=== PATIENT | female | born 1980 | race Caucasian/White ===

== ENCOUNTER 2019-07-05 03:58 | Inpatient (IN) | payer BC ==
[2019-07-05] MEDS ORDERED: Lidocaine 1% 50 ML MDV ONE (04:20)
[2019-07-05] MEDS ORDERED: Oxytocin 10 Units/1 ML SDV IM ONE (04:34)
[2019-07-05] MEDS ORDERED: Lidocaine 1% 50 ML MDV INJECT ONE (04:34)
--- NOTE | 2019-07-05 04:46 | PCM.LDHP ---
L&D History of Present Illness - General Date of Service: 07/05/19 Admit Problem/Dx: Patient Status Order with Admit Dx/Problem 07/05/19 04:35 Patient Status [ADT] Routine Admission Diagnosis/Problem Admission Diagnosis/Problem Vaginal delivery Source of Information: Patient History Limitations: Reports: No Limitations - History of Present Illness Introduction:: Rosmery Zavala is a 39-year-old now -0-2-2 status post precipitous vaginal delivery in route to the hospital at 39 weeks 4 days (NIKKI 07/08/2019). She reports that she had started having contractions last evening at around 9:30 PM and they were about 10 minutes apart. She reports that at around 3:30 in the morning they became much stronger and closer together and she and her started to drive to [place] for delivery. While she was in route her water broke with return of clear fluid. She had a spontaneous delivery of while she was driving to [place]. She states that she delivered the infant at approximately 3:40 AM. Present Illness Comments:: Rosmery Zavala is a 39-year-old now -0-2-2 status post precipitous vaginal delivery in her personal vehicle while in route to the hospital in [place]. She had a routine care with Dr. Dhaliwal starting at approximately 18 weeks gestational age. She denies any complications with the . She received the Tdap vaccine on 05/05/2019. This is complicated by: * Advanced maternal age * Obesity * History of polycystic ovarian syndrome labs Blood type: O+ Antibody screen: Negative Urine culture: Negative Rubella status: Immune Hepatitis B surface antigen: Negative RPR: Negative HIV: Negative Gonorrhea: Negative Chlamydia: Negative One hour glucose tolerance test: 134 Second trimester hemoglobin: 12.7 on 04/07/2019 Platelets: 259 on 04/07/2019 3-hour glucose tolerance test: Fasting 81, 1 hour 162, 2-hour 143 and 3-hour 67 GBS status: Negative - Related Data Allergies/Adverse Reactions: Allergies Allergy/AdvReac Type Severity Reaction Status Date / Time No Known Allergies Allergy Verified 07/05/19 04:38 Home Medications: Home Meds No122/Iron/Folic Acid [ Multi Tablet] 1 tab PO DAILY 07/05/19 [ History] Past Medical History - Past Health History Medical/Surgical History: Denies Medical/Surgical History SUSTAINABLE AGRICULTURE FACULTY History: Reports: Polycystic Ovaries, : 4 Para: 2 Neurological History: Reports: Migraines - Past Surgical History HEENT Surgical History: Reports: Oral Surgery Social & Family History - Family History Family Medical History: Noncontributory - Tobacco Use Smoking Status *Q: Former Smoker Tobacco Use Within Last Twelve Months: No - Tobacco Core Measures Tobacco Use/Smoking Within Last 30 Days: No Smokeless Tobacco Use in Last 30 Days: No - Alcohol Use Alcohol Use History: No - Recreational Drug Use Recreational Drug Use: No Drug Use in Last 12 Months: No - Living Situation & Occupation Living situation: Reports: , with Spouse H&P Review of Systems - Review of Systems: Review Of Systems: See Below General: Denies: Fever, Chills, Malaise, Weakness, Fatigue HEENT: Denies: Headaches, Rhinitis, Post Nasal Drip, Sinus Congestion, Sore Throat, Visual Changes Pulmonary: Denies: Shortness of Breath, Wheezing, Pleuritic Chest Pain, Cough Cardiovascular: Denies: Chest Pain, Palpitations Gastrointestinal: Reports: Diarrhea (x1 while leticia). Denies: Abdominal Pain, Constipation, Nausea, Vomiting Genitourinary: Denies: Dysuria, Frequency, Burning, Pain, Urgency Musculoskeletal: Denies: Back Pain Skin: Denies: Rash, Lesions Psychiatric: Denies: Depression, Anxiety L&D Exam - Exam Exam: See Below - Exam General: Alert, Oriented HEENT: Conjunctiva Clear, EOMI Neck: Supple, Trachea Midline Lungs: Normal Respiratory Effort Cardiovascular: Regular Rate GI/Abdominal Exam: Soft, Non-Tender, No Distention, Other (Firm uterine fundus at the umbilicus). No: Guarding, Rigid, Rebound Genitourinary: Normal external exam, Vaginal tears (First-degree midline perineal laceration that was repaired with 3-0 Vicryl, bilateral periurethral abrasions that were hemostatic and not repaired) Skin: Warm, Dry, Intact Psychiatric: Alert, Normal Affect, Normal Mood - Problem List (1) Vaginal delivery SNOMED Code(s): 316041751 ICD Code: O80 - ENCOUNTER FOR FULL-TERM UNCOMPLICATED DELIVERY Status: Acute Current Visit: Yes (2) First degree perineal laceration during delivery SNOMED Code(s): 197407428 ICD Code: O70.0 - FIRST DEGREE PERINEAL LACERATION DURING DELIVERY Status: Acute Current Visit: Yes (3) Advanced maternal age in multigravida SNOMED Code(s): 342678601 ICD Code: O09.529 - SUPERVISION OF ELDERLY MULTIGRAVIDA, UNSPECIFIED TRIMESTER Status: Acute Current Visit: Yes Problem List Initiated/Reviewed/Updated: Yes Orders Last 24hrs: Active Orders 24 hr Category Date Time Status Patient Status [ADT] Routine ADT 07/05/19 04:35 Active Vital Signs [RC] PER UNIT ROUTINE Care 07/05/19 04:34 Active CBC WITH AUTO DIFF [HEME] Stat Lab 07/05/19 04:34 Ordered RAPID PLASMA REAGIN,RPR [CHEM] Stat Lab 07/05/19 04:34 Ordered Lidocaine 1% [Xylocaine 1%] Med 07/05/19 04:34 Once 20 ml INJECT ONETIME ONE Oxytocin [Pitocin] Med 07/05/19 04:34 Once 10 unit IM ONETIME ONE Resuscitation Status Routine Resus Stat 07/05/19 04:34 Ordered Medication Orders Lidocaine HCl (Xylocaine 1%) 20 ml INJECT ONETIME ONE Stop: 07/05/19 04:35 Oxytocin (Pitocin) 10 unit IM ONETIME ONE Stop: 07/05/19 04:35 Assessment/Plan Comment:: Patient had a precipitous delivery of infant in the vehicle in route to [place]. Patient delivered a live male on 07/05/2019 at 03:40. Apgars were unknown due to the delivery occurring in route to the hospital in a personal vehicle. weight was 3270 g (7 pounds 3.3 ounces) on admission at the hospital. After patient arrived to the hospital the cord was cut and the was resuscitated at the warmer by the nurses. They noted that there was a true knot in the cord. The placenta was delivered without difficulty at 04:17. She was given Pitocin 10 units IM for additional uterine tone. She had a first- degree midline perineal laceration that had some bleeding that was repaired with 3-0 Vicryl. She also had bilateral periurethral abrasions that were hemostatic and not repaired. EBL while she was at the hospital totaled approximately 100 mL. Plan Admit to inpatient following precipitous spontaneous vaginal delivery in personal vehicle in route to [place] Patient given Pitocin 10 units IM for uterine tone Regular diet Vitals per unit routine Ibuprofen and Tylenol for pain control Assist with breast-feeding as needed Continue to monitor lochia Anticipate discharge home on day #1 Eduardo Britt MD 4:59 AM 07/05/2019
[2019-07-05] MEDS ORDERED: Hydrocortisone Acetate 25 MG Supp RECTAL PRN (05:30)
[2019-07-05] MEDS ORDERED: Docusate Sodium 100 MG Cap PO PRN (05:30)
[2019-07-05] MEDS ORDERED: Witch Hazel Medicated Pads 40/Jar TOP PRN (05:30)
[2019-07-05] MEDS ORDERED: Magnesium Hydroxide 400 MG/5 ML Susp 30 ML Cup PO PRN (05:30)
[2019-07-05] MEDS ORDERED: Acetaminophen 325 MG Tab PO PRN (05:30)
[2019-07-05] MEDS ORDERED: Benzocaine/Menthol 20%-0.5% Spray 56 GM Canister TOP PRN (05:30)
[2019-07-05] MEDS: Ibuprofen 600 MG Tab PO PRN ×2 (06:20→16:11)
[2019-07-05] MEDS: Prenatal Multivitamin with Calcium/Folic Acid/Iron Tab PO SCH (16:15)
[2019-07-06] MEDS: Ibuprofen 600 MG Tab PO PRN ×2 (01:55→08:59)
--- NOTE | 2019-07-06 07:28 | PCM.SN ---
- Free Text/Narrative Note: Post Progress Note PPD #1 Subjective: Doing well overall. Ambulating without difficulty. Lochia minimal and decreasing since yesterday. Voiding without difficulty. Tolerating regular diet without nausea or vomiting. Pain controlled with oral medications. Reports only having some mild cramping with breast-feeding. Reports that Motrin is helping with this pain. Breast-feeding with minimal difficulty. Objective: Vitals: Vital Signs - 24 hr 07/05/19 07/05/19 07/05/19 08:58 09:30 16:07 Temperature 36.9 C 36.7 C Pulse, 83 84 Peripheral Respiratory 14 14 Rate Blood Pressure 147/97 H 130/85 132/86 O2 Sat by Pulse 96 98 Oximetry 07/05/19 21:07 Temperature 37.2 C Pulse, 87 Peripheral Respiratory 15 Rate Blood Pressure 134/84 O2 Sat by Pulse 95 Oximetry Physical Exam General: Alert and oriented, no acute distress Lungs: Clear to auscultation bilaterally Heart: Regular rate and rhythm Abdomen: Soft, minimal appropriate tenderness, non-distended, fundus midline, nontender, and 1 fingerbreadth below the umbilicus Extremities: Trace edema in bilateral lower extremities to mid shins Laboratory Tests 07/05/19 07/05/19 Range/Units 04:55 04:55 WBC 12.80 H (3.98-10.04) K/mm3 RBC 4.51 (3.98-5.22) M/mm3 Hgb 13.0 (11.2-15.7) gm/dl Hct 40.7 (34.1-44.9) % MCV 90.2 (79.4-94.8) fl MCH 28.8 (25.6-32.2) pg MCHC 31.9 L (32.2-35.5) g/dl RDW Std Deviation 48.8 H (36.4-46.3) fL Plt Count 284 (182-369) K/mm3 MPV 9.5 (9.4-12.3) fl Neut % (Auto) 80.7 H (34.0-71.1) % Lymph % (Auto) 14.4 L (19.3-51.7) % [place] % (Auto) 4.4 L (4.7-12.5) % Eos % (Auto) 0.2 L (0.7-5.8) Baso % (Auto) 0.1 (0.1-1.2) % Neut # (Auto) 10.35 H (1.56-6.13) K/mm3 Lymph # (Auto) 1.84 (1.18-3.74) K/mm3 [place] # (Auto) 0.56 H (0.24-0.36) K/mm3 Eos # (Auto) 0.02 L (0.04-0.36) K/mm3 Baso # (Auto) 0.01 (0.01-0.08) K/mm3 RPR Non-reactive (NONREACTIVE) ASSESSMENT: 39-year-old female -0-2-2 s/p normal vaginal delivery in route to the hospital PPD #1, complicated by delivery outside of the hospital, obesity and advanced maternal age PLAN: Doing well Breast-feeding with minimal difficulty. Assist as needed Lochia minimal. Continue to monitor for appropriate lochia. Continue routine care Anticipate discharge home today if infant is discharged Eduardo Britt MD 7:28 AM 07/06/2019 TeleHealth - TeleHealth Patient Service Facility: [facility]: [facility] Informed Consent: Telemedicine Audio/Visual Informed Consent: The risks, benefits, and alternatives to the telehealth visit were explained to the patient and the patient consented to this modality of care. The telehealth visit was carried out via a secure, web-based conferencing system. This telemedicine service was a real-time, two-way interactive video and communication between the patient and the provider. All the parties involved were identified and approved by the patient prior to the visit. Any physical exam was assisted by the patient. Unless noted otherwise, the provider was located at their usual clinic location , and the patient was at their place of residence. Patient identity was confirmed by having the patient state their name and date of . All communications with the patient (verbal, audiovisual, and written) were documented in the patients medical record per documentation standards.
--- NOTE | 2019-07-06 07:33 | PCM.DCSUM1 ---
Discharge Summary - Hospital Course Free Text/Narrative:: Rosmery Zavala is a 39-year-old now -0-2-2 status post precipitous vaginal delivery in route to the hospital at 39 weeks 4 days (NIKKI 07/08/2019). She reports that she had started having contractions last evening at around 9:30 PM and they were about 10 minutes apart. She reports that at around 3:30 in the morning they became much stronger and closer together and she and her started to drive to [place] for delivery. While she was in route her water broke with return of clear fluid. She had a spontaneous delivery of infant while she was driving to [place]. She states that she delivered the at approximately 3:40 AM. HPI Initial Comments: Rosmery Zavala is a 39-year-old now -0-2-2 status post precipitous vaginal delivery in route to the hospital at 39 weeks 4 days (NIKKI 07/08/2019). She reports that she had started having contractions last evening at around 9:30 PM and they were about 10 minutes apart. She reports that at around 3:30 in the morning they became much stronger and closer together and she and her started to drive to [place] for delivery. While she was in route her water broke with return of clear fluid. She had a spontaneous delivery of while she was driving to [place]. She states that she delivered the at approximately 3:40 AM. Brief History: Rosmery Zavala is a 39-year-old now -0-2-2 status post precipitous vaginal delivery in route to the hospital at 39 weeks 4 days (NIKKI ). She reports that she had started having contractions last evening at around 9:30 PM and they were about 10 minutes apart. She reports that at around 3:30 in the morning they became much stronger and closer together and she and her started to drive to [place] for delivery. While she was in route her water broke with return of clear fluid. She had a spontaneous delivery of while she was driving to [place]. She states that she delivered the infant at approximately 3:40 AM. Diagnosis: Stroke: No - Discharge Data Discharge Date: 07/06/19 Discharge Disposition: Home, Self-Care 01 Condition: Good - Referral to Home Health Primary Care Physician: Yasemin Dhaliwal MD - Discharge Diagnosis/Problem(s) (1) Vaginal delivery SNOMED Code(s): 279023277 ICD Code: O80 - ENCOUNTER FOR FULL-TERM UNCOMPLICATED DELIVERY Status: Acute Current Visit: Yes (2) First degree perineal laceration during delivery SNOMED Code(s): 254543887 ICD Code: O70.0 - FIRST DEGREE PERINEAL LACERATION DURING DELIVERY Status: Acute Current Visit: Yes (3) Advanced maternal age in multigravida SNOMED Code(s): 999633401 ICD Code: O09.529 - SUPERVISION OF ELDERLY MULTIGRAVIDA, UNSPECIFIED TRIMESTER Status: Acute Current Visit: Yes - Patient Summary/Data Complications: Delivery of in personal vehicle in route to hospital. Consults: None Hospital Course: Rosmery Zavala was admitted after she had precipitous vaginal delivery in her personal vehicle in route to the hospital. She was GBS negative. On 07/05/2019 she had a precipitous vaginal delivery in her personal vehicle of a live male at 03:40. Apgars were unknown due to delivery and personal vehicle. Weight of 3270 g (7 pounds 3.3 ounces). On admission to the hospital she had a normal spontaneous delivery of the placenta at 04:17. She was given Pitocin 10 units IM for uterine tone. She had a first-degree midline perineal laceration that was repaired with 3-0 Vicryl. Her course was uneventful. Her pain was well controlled and she had minimal lochia. She was ambulating, tolerating a regular diet and voiding normally. She was breast-feeding with minimal difficulty. She was afebrile and her hematocrit was 40.7 on admission. She desired to be discharged home on the morning of PPD #1. Her blood type is O+. - Patient Instructions Diet: Regular Diet as Tolerated Activity: Apply Ice, As Tolerated Activity, Other: Nothing in the vagina for 6 weeks Driving: May Drive Today Showering/Bathing: May Shower Notify Provider of: Fever, Increased Pain, Swelling and Redness, Drainage, Nausea and/or Vomiting Other/Special Instructions: Please contact your physician's office if you have heavy vaginal bleeding enough to soak a pad in less than an hour for several hours. Monitor for any signs of an infection in the breasts with severe pain or redness of the breast. - Discharge Plan *PRESCRIPTION DRUG MONITORING PROGRAM REVIEWED*: Not Applicable *COPY OF PRESCRIPTION DRUG MONITORING REPORT IN PATIENT ELIZABETH: Not Applicable Home Medications: Home Meds No122/Iron/Folic Acid [ Multi Tablet] 1 tab PO DAILY 07/05/19 [ History] Acetaminophen [Tylenol] 650 mg PO Q6H PRN tablet 07/06/19 [Rx] Benzocaine/Menthol [Dermoplast Pain Relief [place]] 1 spray TOP ASDIRECTED PRN canister 07/06/19 [Rx] Docusate Sodium [Colace] 100 mg PO BID PRN cap 07/06/19 [Rx] Hydrocortisone Acetate [Anucort-HC] 25 mg RECTAL BID PRN supp 07/06/19 [Rx] Ibuprofen [Motrin] 600 mg PO Q6H PRN tablet 07/06/19 [Rx] witch Bernie [Tucks] 1 pad TOP ASDIRECTED PRN pad 07/06/19 [Rx] Patient Handouts: Care of a Perineal Tear, Care After Vaginal Delivery Referrals: Yasemin Dhaliwal MD [Primary Care Provider] - (Follow-up in 6 weeks for routine visit or earlier as needed.) - Discharge Summary/Plan Comment DC Time >30 min.: No - Patient Data Vitals - Most Recent: Last Vital Signs Temp 37.2 C 07/06/19 06:39 Pulse 88 07/06/19 06:39 Resp 16 07/06/19 06:39 BP 127/80 07/06/19 06:39 Pulse Ox 96 07/06/19 06:39 Weight - Most Recent: 90.265 kg I&O - Last 24 hours: Intake & Output 07/05/19 07/06/19 07/06/19 22:59 06:59 14:59 Intake Total 1120 Balance 1120 Lab Results - Last 24 hrs: Laboratory Results - last 24 hr 07/05/19 Range/Units 04:55 RPR Non-reactive (NONREACTIVE) Med Orders - Current: Current Medications Acetaminophen (Tylenol) 650 mg PO Q6H PRN PRN Reason: mild pain or fever Benzocaine/Menthol (Dermoplast Pain Relief [place]) 0 gm TOP ASDIRECTED PRN PRN Reason: Perineal Comfort Measure Last Admin: 07/05/19 06:21 Dose: 1 can Docusate Sodium (Colace) 100 mg PO BID PRN PRN Reason: Constipation Hydrocortisone Acetate (Anucort-Hc) 25 mg RECTAL BID PRN PRN Reason: Hemorrhoid pain Ibuprofen (Motrin) 600 mg PO Q6H PRN PRN Reason: Mild pain or fever Last Admin: 07/06/19 01:55 Dose: 600 mg Magnesium Hydroxide (Milk Of Magnesia) 30 ml PO BEDTIME PRN PRN Reason: Constipation Prenat Multivit/[place]/Iron/Folic Ac ( Plus Iron) 1 each PO DAILY BONG Last Admin: 07/05/19 16:15 Dose: Not Given Javed Reeves (Tucks) 1 pad TOP ASDIRECTED PRN PRN Reason: Perineal Comfort Measure Last Admin: 07/05/19 06:21 Dose: 1 container Discontinued Medications Lidocaine HCl (Xylocaine 1%) Confirm Administered Dose 50 ml .ROUTE .STK-MED ONE Stop: 07/05/19 04:21 Last Admin: 07/05/19 05:27 Dose: Not Given Lidocaine HCl (Xylocaine 1%) 20 ml INJECT ONETIME ONE Stop: 07/05/19 04:35 Last Admin: 07/05/19 04:44 Dose: 10 ml Oxytocin (Pitocin) 10 unit IM ONETIME ONE Stop: 07/05/19 04:35 Last Admin: 07/05/19 04:27 Dose: 10 unit
[2019-07-06] MEDS: Prenatal Multivitamin with Calcium/Folic Acid/Iron Tab PO SCH (09:00)
[2019-07-06 10:57] VITALS: BP 136/87; PULSE 79
== END 2019-07-06 10:45 | disposition home or self-care (01) | DRG 560 ==
LOC: JD.OBCHECK 03:58 → JD.OB 04:00 → OBSVTOIN 05:07 → JD.OB 05:08
PROVIDERS: ADMIT Obstetrics & Gynecology; ATTEND Obstetrics & Gynecology
PROC: 10E0XZZ Delivery of Products of Conception, External Approach (ICD-10-PCS; principal; 2019-07-05)
PROC: 0HQ9XZZ Repair Perineum Skin, External Approach (ICD-10-PCS; 2019-07-05)
DX: O62.3 Precipitate labor (principal); Z3A.39 39 weeks gestation of pregnancy; Z37.0 Single live birth; O70.0 First degree perineal laceration during delivery
CPT/HCPCS: 36415; 59300; 59414; 85025; 86592; A9270-GY; J2001; J2590